=== PATIENT | female | born 2000 ===

== ENCOUNTER 2022-06-21 20:18 | Emergency (ER) | payer BC ==
[2022-06-21 22:00] LABS: ANION GAP 12.1 mEq/L (7-13)
[2022-06-21] MEDS ORDERED: Potassium Chloride 10 MEQ Tab.ER PO ONE (22:05)
== END 2022-06-21 22:32 | disposition home or self-care (01) ==
LOC: DL.ED 20:18
DX: O21.1 Hyperemesis gravidarum with metabolic disturbance (principal); Z3A.01 Less than 8 weeks gestation of pregnancy
CPT/HCPCS: 36415; 80053; 81001; 84443; 85025; 99284; A9270